=== PATIENT | female | born 1990 | race Caucasian/White ===

== ENCOUNTER 2020-08-28 22:16 | Emergency (ER) | payer OTHER ==
[2020-08-29 05:11] LABS: BUN/CREAT RATIO (CALC) 16.3 RATIO; CREATININE 0.92 mg/dL (0.51-0.95); POTASSIUM 3.9 mmol/L (3.5-5.1)
== END 2020-08-29 05:20 | disposition home or self-care (01) ==
LOC: FER 22:16
PROVIDERS: Emergency Medicine
DX: R07.89 Other chest pain (principal); R00.2 Palpitations; R94.31 Abnormal electrocardiogram [ECG] [EKG]; K21.9 Gastro-esophageal reflux disease without esophagitis; Z79.899 Other long term (current) drug therapy
CPT/HCPCS: 36415; 80048; 84484; 85379; 93005

== ENCOUNTER 2020-09-06 11:54 | Emergency (ER) | payer OTHER ==
[2020-09-06 13:10] LABS: BILIRUBIN 1+ mg/dL (NEGATIVE); BLOOD 3+ Ery/uL (NEGATIVE); CLARITY CLEAR (CLEAR); COLOR YELLOW (YELLOW); GLUCOSE (U) NORMAL (NORMAL); LEUKOCYTES NEGATIVE Leu/uL (NEGATIVE); NITRITE NEGATIVE (NEGATIVE); PROTEIN NEGATIVE (NEGATIVE); SPECIFIC GRAVITY >=1.030 (1.001-1.030); UROBILINOGEN 0.2 mg/dL (0.2-1.0); pH 5.5 (5.0-9.0)
[2020-09-06 13:11] LABS: BASOPHIL 0.5 % (0-2); HCT 49.9 % (37.0-47.0); HGB 17.2 g/dl (12.5-16.0); LYMPHOCYTE 21.6 % (15-48); MCH 30.1 pg (25.0-31.0); MCHC 34.5 g/dL (32.0-36.0); MCV 87.2 fL (78.0-100.0); MONOCYTE 7.7 % (0-12); MPV 11.5 fL (6.0-9.5); NEUTROPHIL 67.9 % (41-80); NRBC 0; PLT 300 K/uL (150-400); RBC 5.72 M/uL (4.20-5.40); RDW 11.9 % (11.5-14.0); WBC 11.5 K/uL (4.0-10.5)
[2020-09-06 13:20] LABS: BACTERIA TRACE
[2020-09-06 14:26] LABS: CREATININE 1.08 mg/dL (0.51-0.95)
[2020-09-06 14:27] LABS: ALBUMIN 4.5 g/dL (3.4-5.0); BILIRUBIN - TOTAL 0.7 mg/dL (0.2-1.0); GLOBULIN (CALCULATION) 3.9 g/dL; POTASSIUM 3.8 mmol/L (3.5-5.1); TOTAL PROTEIN 8.4 g/dL (6.4-8.2)
[2020-09-06] MEDS ORDERED: PRILOSEC20 MG PO (14:42)
== END 2020-09-06 14:56 | disposition home or self-care (01) ==
LOC: FER 11:54
PROVIDERS: Emergency Medicine
DX: R07.89 Other chest pain (principal); R00.2 Palpitations; F17.290 Nicotine dependence, other tobacco product, uncomplicated
CPT/HCPCS: 36415; 80053; 81001; 82150; 83690; 84484; 85025; 93005

== ENCOUNTER 2020-09-16 15:49 | Emergency (ER) | payer OTHER ==
[~2020-09-16 15:49] MED LIST: PRILOSEC20 MG PO
[2020-09-16 18:22] LABS: EOSINOPHIL 3.2 % (0-5); HCT 44.2 % (37.0-47.0); HGB 15.3 g/dl (12.5-16.0); LYMPHOCYTE 28.8 % (15-48); MCH 30.5 pg (25.0-31.0); MCHC 34.6 g/dL (32.0-36.0); MCV 88.2 fL (78.0-100.0); MONOCYTE 8.8 % (0-12); MPV 11.4 fL (6.0-9.5); NEUTROPHIL 57.9 % (41-80); NRBC 0; PLT 232 K/uL (150-400); RBC 5.01 M/uL (4.20-5.40); RDW 11.9 % (11.5-14.0); WBC 7.3 K/uL (4.0-10.5)
[2020-09-16 18:28] LABS: BILIRUBIN NEGATIVE (NEGATIVE); BLOOD NEGATIVE Ery/uL (NEGATIVE); CLARITY CLEAR (CLEAR); COLOR YELLOW (YELLOW); GLUCOSE (U) NORMAL (NORMAL); LEUKOCYTES NEGATIVE Leu/uL (NEGATIVE); NITRITE NEGATIVE (NEGATIVE); PROTEIN NEGATIVE (NEGATIVE); UROBILINOGEN 0.2 mg/dL (0.2-1.0)
[2020-09-16 18:33] LABS: SQUAMOUS EPITHELIAL CELLS RARE
[2020-09-16 18:41] LABS: ALBUMIN 4.1 g/dL (3.4-5.0); BILIRUBIN - TOTAL 0.4 mg/dL (0.2-1.0); BUN/CREAT RATIO (CALC) 8.5 RATIO; CREATININE 1.29 mg/dL (0.51-0.95); POTASSIUM 4.3 mmol/L (3.5-5.1); TOTAL PROTEIN 7.1 g/dL (6.4-8.2)
[2020-09-16] MEDS ORDERED: ZOFRAN4 M1 PO (21:45)
== END 2020-09-16 21:28 | disposition home or self-care (01) ==
LOC: FER 15:49
PROVIDERS: Physician Assistant
DX: N28.9 Disorder of kidney and ureter, unspecified (principal); F17.290 Nicotine dependence, other tobacco product, uncomplicated
CPT/HCPCS: 36415; 80053; 81001; 83690; 85025; J2405; J7030

== ENCOUNTER 2020-10-20 15:29 | Emergency (ER) | payer OTHER ==
[~2020-10-20 15:29] MED LIST changes: +ZOFRAN4 M1 PO
[2020-10-20] MEDS ORDERED: BUPROPION XL300 MG PO (17:09)
[2020-10-20] MEDS ORDERED: BUSPIRONE HCL10 MG PO (17:09)
[2020-10-20] MEDS ORDERED: DICYCLOMINE HCL10 MG PO (17:09)
[2020-10-20] MEDS ORDERED: CARAFATE S500 MG/TSP PO (21:00)
== END 2020-10-20 21:25 | disposition home or self-care (01) ==
LOC: FER 15:29
DX: R13.10 Dysphagia, unspecified (principal)
CPT/HCPCS: 70490

== ENCOUNTER 2021-08-26 13:57 | Emergency (ER) | payer OTHER ==
[~2021-08-26 13:57] MED LIST changes: +BUPROPION XL300 MG PO; +BUSPIRONE HCL10 MG PO; +CARAFATE S500 MG/TSP PO; +DICYCLOMINE HCL10 MG PO
[2021-08-26 16:02] LABS: BILIRUBIN NEGATIVE (NEGATIVE); BLOOD NEGATIVE Ery/uL (NEGATIVE); CLARITY CLEAR (CLEAR); COLOR YELLOW (YELLOW); GLUCOSE (U) NORMAL (NORMAL); LEUKOCYTES NEGATIVE Leu/uL (NEGATIVE); NITRITE NEGATIVE (NEGATIVE); PROTEIN NEGATIVE (NEGATIVE); SPECIFIC GRAVITY >=1.030 (1.001-1.030); UROBILINOGEN 0.2 mg/dL (0.2-1.0); pH 5.5 (5.0-9.0)
[2021-08-26 16:13] LABS: BASOPHIL 0.3 % (0-2); EOSINOPHIL 0.6 % (0-5); HCT 51.1 % (37.0-47.0); HGB 17.2 g/dl (12.5-16.0); LYMPHOCYTE 7.1 % (15-48); MCH 30.2 pg (25.0-31.0); MCHC 33.7 g/dL (32.0-36.0); MCV 89.8 fL (78.0-100.0); MONOCYTE 7.4 % (0-12); MPV 11.5 fL (6.0-9.5); NEUTROPHIL 84.2 % (41-80); NRBC 0; PLT 259 K/uL (150-400); RBC 5.69 M/uL (4.20-5.40); RDW 12.4 % (11.5-14.0); WBC 16.7 K/uL (4.0-10.5)
[2021-08-26 16:19] LABS: BACTERIA 2+; MUCOUS LARGE
[2021-08-26 16:30] LABS: ALBUMIN 4.2 g/dL (3.4-5.0); BILIRUBIN - TOTAL 0.5 mg/dL (0.2-1.0); BUN/CREAT RATIO (CALC) 13.8 RATIO; CREATININE 0.94 mg/dL (0.51-0.95); GLOBULIN (CALCULATION) 3.5 g/dL; POTASSIUM 4.3 mmol/L (3.5-5.1); TOTAL PROTEIN 7.7 g/dL (6.4-8.2)
[2021-08-26] MEDS ORDERED: ONDANSETRON ODT4 MG PO (19:05)
== END 2021-08-26 19:09 | disposition home or self-care (01) ==
LOC: FER 13:57
PROVIDERS: Emergency Medicine
DX: A08.4 Viral intestinal infection, unspecified (principal); E86.0 Dehydration
CPT/HCPCS: 36415; 80053; 81001; 83690; 84703; 85025; J1885; J2405; J7030